=== PATIENT | female | born 1990 ===

== ENCOUNTER → 2020-09-07 | Outpatient (CLI) | payer OTHER | END | disposition home or self-care (01) | LOC: CLISVCS 14:58 | PROVIDERS: ATTEND Obstetrics & Gynecology | DX: Z20.828 Contact with and (suspected) exposure to other viral communicable diseases (principal) | CPT/HCPCS: 87635 ==

== ENCOUNTER 2020-09-19 12:28 | Inpatient (IN) | payer MEDICAID, OTHER ==
[~2020-09-19] VITALS: Ht 154.9 cm; Wt 74.5 kg
[2020-09-22] MEDS ORDERED: OXYTOCIN 30U/ 0.9% NaCL 500ML 500 ML IV PRN (07:30)
[2020-09-22] MEDS ORDERED: ONDANSETRON 2MG/ML, 2ML IVPush PRN (07:30)
[2020-09-22] MEDS ORDERED: OXYTOCIN 30U/ 0.9% NaCL 500ML 500 ML IV ONE (07:30)
[2020-09-22] MEDS ORDERED: TERBUTALINE 1 MG/ML, 1ML SQ PRN (07:30)
[2020-09-22] MEDS ORDERED: FENTANYL PF 100 MCG/2ML IVPush PRN (07:30)
[2020-09-22] MEDS ORDERED: TERBUTALINE 1 MG/ML, 1ML IVPush PRN (07:30)
[2020-09-22] MEDS: LACTATED RINGERS 1,000 ML IV SCH ×2 (07:59→17:25)
[2020-09-22] MEDS ORDERED: OXYTOCIN 30U/ 0.9% NaCL 500ML 500 ML ONE (08:01)
[2020-09-22 08:10] LABS: BASOPHILS % (AUTO) 0 % (0-1); EOSINOPHILS % (AUTO) 1 % (1-7); LYMPHOCYTES % (AUTO) 10 % (22-44); MEAN CORPUSCULAR HEMOGLOBIN 30.7 pg (27.0-34.8); MEAN CORPUSCULAR HGB CONC 34.5 g/dL (32.4-35.8); MEAN PLATELET VOLUME 10.1 fL (7.4-10.4); MONOCYTES % (AUTO) 8 % (2-9); NEUTROPHILS % (AUTO) 81 % (42-75); PLATELET COUNT 183 x10^3/uL (130-400); RED BLOOD COUNT 4.61 x10^6/uL (3.82-5.3); RED CELL DISTRIBUTION WIDTH 14.3 % (9.6-15.2)
[2020-09-22 08:23] LABS: MD NO
[2020-09-22] MEDS ORDERED: PLEASE ENTER ALLERGIES MC SCH (08:30)
[2020-09-22] MEDS ORDERED: PLEASE ENTER HEIGHT AND WEIGHT MC SCH (08:30)
[2020-09-22] MEDS ORDERED: PREN1TAB60 PO (08:34)
[2020-09-22 08:48] VITALS: BP 111/74
[2020-09-22] MEDS ORDERED: NEWBORN KIT ONE (09:42)
[2020-09-22] MEDS ORDERED: LIDOCAINE 1%, 20ML ONE (10:56)
[2020-09-22] MEDS ORDERED: MISOPROSTOL 200 MCG TABLET ONE (10:56)
[2020-09-22] MEDS ORDERED: MISOPROSTOL 100 MCG TABLET ONE (10:57)
[2020-09-22] MEDS ORDERED: FENTANYL PF 100 MCG/2ML ONE (11:56)
[2020-09-22] MEDS ORDERED: FENTANYL/BUPIV./NS/PF 250 ML EPIDCONT ONE (15:09)
[2020-09-22] MEDS ORDERED: LIDOCAINE/PF 1.5% EPI 1:200K, 10 ML ONE (15:09)
[2020-09-22] MEDS ORDERED: FENTANYL/BUPIV./NS/PF 250 ML EPIDCONT SCH (16:00)
[2020-09-22] MEDS ORDERED: LACTATED RINGERS 1,000 ML IVBOLUS PRN (16:00)
[2020-09-22] MEDS ORDERED: NALOXONE 0.4 MG/ML, 1ML IVPush PRN (16:00)
[2020-09-22] MEDS ORDERED: EPHEDRINE 50 MG/ML, 1ML IVPush PRN (16:00)
[2020-09-22] MEDS ORDERED: LACTATED RINGERS 1,000 ML IV SCH (16:00)
[2020-09-23 00:12] VITALS: BP 123/56
[2020-09-23] MEDS ORDERED: OXYTOCIN 30U/ 0.9% NaCL 500ML 500 ML ONE (00:29)
[2020-09-23] MEDS ORDERED: IBUPROFEN 600 MG TABLET ONE (00:29)
[2020-09-23] MEDS ORDERED: ACETAMINOPHEN 325 MG TABLET PO PRN (00:30)
[2020-09-23] MEDS ORDERED: HYDROcodone/APAP 5/325 TABLET PO PRN ×2 (00:30)
[2020-09-23] MEDS ORDERED: SIMETHICONE 80 MG CHEW TAB PO PRN (00:30)
[2020-09-23] MEDS ORDERED: MISOPROSTOL 200 MCG TABLET PR PRN (00:30)
[2020-09-23] MEDS ORDERED: ONDANSETRON 2MG/ML, 2ML IV PRN (00:30)
[2020-09-23] MEDS ORDERED: METHYLERGONOVINE 0.2 MG/ML IM PRN (00:30)
[2020-09-23] MEDS ORDERED: OXYTOCIN 10 UNITS/ML, 1ML IM PRN (00:30)
[2020-09-23] MEDS ORDERED: CARBOPROST TROMETHAMINE 250 MCG/ML, 1ML IM PRN (00:30)
[2020-09-23] MEDS: OXYTOCIN 30U/ 0.9% NaCL 500ML 500 ML IV SCH ×3 (00:33→20:30)
[2020-09-23] MEDS: IBUPROFEN 600 MG TABLET PO PRN ×4 (00:33→21:33)
[2020-09-23 02:04] VITALS: BP 113/64
[2020-09-23] MEDS ORDERED: MEASLES,MUMPS&RUBELLA VACC/PF 0.5 ML SQ-VACC PRN (06:30)
[2020-09-23] MEDS: DOCUSATE 100 MG CAPSULE PO PRN ×2 (08:05→21:33)
[2020-09-23] MEDS: PRENATAL VIT/IRON/FA 1 EACH TABLET PO SCH (08:05)
[2020-09-23 08:20] VITALS: BP 115/70
[2020-09-23 08:56] LABS: BASOPHILS % (AUTO) 0 % (0-1); EOSINOPHILS % (AUTO) 0 % (1-7); LYMPHOCYTES % (AUTO) 8 % (22-44); MEAN CORPUSCULAR HEMOGLOBIN 30.2 pg (27.0-34.8); MEAN CORPUSCULAR HGB CONC 34.2 g/dL (32.4-35.8); MEAN PLATELET VOLUME 10.4 fL (7.4-10.4); MONOCYTES % (AUTO) 9 % (2-9); NEUTROPHILS % (AUTO) 82 % (42-75); PLATELET COUNT 151 x10^3/uL (130-400); RED BLOOD COUNT 4.17 x10^6/uL (3.82-5.3); RED CELL DISTRIBUTION WIDTH 14.1 % (9.6-15.2)
[2020-09-23 09:27] LABS: MD SCAN
[2020-09-23 12:35] VITALS: BP 109/76
[2020-09-23 16:59] VITALS: BP 102/66
[2020-09-23 20:45] VITALS: BP 114/79
[2020-09-24] MEDS: OXYTOCIN 30U/ 0.9% NaCL 500ML 500 ML IV SCH (06:30)
[2020-09-24] MEDS: PRENATAL VIT/IRON/FA 1 EACH TABLET PO SCH (07:36)
[2020-09-24] MEDS: DOCUSATE 100 MG CAPSULE PO PRN (07:36)
[2020-09-24] MEDS: IBUPROFEN 600 MG TABLET PO PRN ×2 (07:36→14:59)
[2020-09-24 08:05] VITALS: BP 126/88
[2020-09-24] MEDS ORDERED: HYDR-3240 PO ×2 (11:39)
== END 2020-09-24 19:47 | disposition home or self-care (01) | DRG 807 ==
LOC: LDIP 09-22 06:58 → 2NE 09-23 02:00 → 2NW 09-24 04:10
PROVIDERS: ADMIT Obstetrics & Gynecology; ATTEND Obstetrics & Gynecology
PROC: 10E0XZZ Delivery of Products of Conception, External Approach (ICD-10-PCS; principal; 2020-09-23)
PROC: 0KQM0ZZ Repair Perineum Muscle, Open Approach (ICD-10-PCS; 2020-09-23)
PROC: 10907ZC Drainage of Amniotic Fluid, Therapeutic from Products of Conception, Via Natural or Artificial Opening (ICD-10-PCS; 2020-09-23)
PROC: 3E0R3BZ Introduction of Anesthetic Agent into Spinal Canal, Percutaneous Approach (ICD-10-PCS; 2020-09-23)
PROC: 00HU33Z Insertion of Infusion Device into Spinal Canal, Percutaneous Approach (ICD-10-PCS; 2020-09-23)
DX: O48.0 Post-term pregnancy (principal); Z37.0 Single live birth; Z3A.40 40 weeks gestation of pregnancy; Z20.828 Contact with and (suspected) exposure to other viral communicable diseases; O70.1 Second degree perineal laceration during delivery
CPT/HCPCS: 36415; 85025; 86592; 86850; 86900; 87635; G0378; J3010; J2590; J7120